=== PATIENT | male | born 1955 | race American Indian/Alaskan Native ===

== ENCOUNTER 2019-11-30 16:24 | Emergency (ER) | payer OTHER ==
--- NOTE | 2019-11-30 18:51 | Event Note ---
ED Screening Note Date of service: 11/30/19 Time: 18:49 ED Screening Note: This is a 64 y.o. M. that presents to the ER with left shoulder pain and swelling x 1 week. This initial assessment/diagnostic orders/clinical plan/treatment(s) is/are subject to change based on patients health status, clinical progression and re- assessment by fellow clinical providers in the ED. Further treatment and workup at subsequent clinical providers discretion. Patient/guardian urged not to elope from the ED as their condition may be serious if not clinically assessed and managed. Initial orders include: XR of left shoulder
--- NOTE | 2019-11-30 19:39 | XRay Report ---
LEFT SHOULDER 3 VIEW(S) INDICATION / CLINICAL INFORMATION: left shoulder pain and swelling COMPARISON: None available. FINDINGS: BONES / JOINT(S): No acute fracture or subluxation. Mild degenerative arthrosis left AC joint. SOFT TISSUES: No significant abnormality. ADDITIONAL FINDINGS: None. Signer Name: Salomon Galo MD Signed: 11/30/2019 7:35 PM Workstation Name: [id number]
--- NOTE | 2019-11-30 19:40 | XRay Report ---
CERVICAL SPINE 5 VIEWS INDICATION / CLINICAL INFORMATION: neck pain. COMPARISON: None available. FINDINGS: VERTEBRAE: No fracture. No significant malalignment. DISC SPACES:Mature anterior cervical disc fusion with osseous continuity extends from C3-6. 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 PREVERTEBRAL SOFT TISSUES:No significant abnormality. ADDITIONAL FINDINGS: Bilateral cervical ribs. Signer Name: Salomon Galo MD Signed: 11/30/2019 7:36 PM Workstation Name: [id number]
[2019-11-30] MEDS ORDERED: KETOROLAC 30 MG/1 ML INJ IM ONE (21:26)
[2019-11-30] MEDS ORDERED: oxyCODONE /ACETAMINOPHEN 5-325MG TAB PO ONE (21:26)
--- NOTE | 2019-11-30 21:45 | Emergency Department Report ---
Upper Extremity - HPI Chief Complaint: Neck Pain/Injury Stated Complaint: SHARP PAIN LT SHOULDER/NUMBNESS ELBOW Time Seen by Provider: 11/30/19 18:48 Upper Extremity: Left Shoulder Occurred When: 5 Days Mechanism: Other (no trauma) Severity: severe Symptoms: Yes Pain with Movement, No Deformity, No Limited Range of Movement, No Numbness, No Weakness, No Swelling, No Bruising/Ecchymosis, No Laceration or Abrasion Other History: Mr. Carranza is a 64-year-old male with history of rheumatoid arthritis, bilateral rotator cuff surgery, cervical fusion, diabetes mellitus, hypertension, hypothyroidism, who presents with 5 days of left shoulder pain. Fells swollen. PCP provided [id number] therapy. Pain is not improved. No direct trauma. Denies fever. Denies chest pain. Denies paresthesias ED Review of Systems ROS: Stated complaint: SHARP PAIN LT SHOULDER/NUMBNESS ELBOW Other details as noted in HPI Constitutional: denies: fever, malaise Respiratory: denies: cough Cardiovascular: denies: chest pain Gastrointestinal: denies: abdominal pain, nausea, vomiting Musculoskeletal: arthralgia Neurological: denies: numbness, paresthesias ED Past Medical Hx - Past Medical History Previous Medical History?: Yes Hx Hypertension: Yes Hx Diabetes: Yes Hx Arthritis: Yes Additional medical history: hypothyroid patient has been out of his Synthroid for months - Surgical History Past Surgical History?: Yes Additional Surgical History: cervical fusion. right eye..detatched retina. sinus surgery - Social History Smoking Status: Never Smoker Substance Use Type: None - Medications Home Medications: Home Medications Medication Instructions Recorded Confirmed Last Taken Type Levothyroxine [Synthroid] 25 mcg PO QAM 09/23/13 04/19/14 09/22/13 08:00 History PARoxetine HCl [PARoxetine] 40 mg PO QAM 09/23/13 04/19/14 09/22/13 08:00 History buPROPion [Wellbutrin] 75 mg PO BID 09/23/13 04/19/14 09/22/13 08:00 History lisinopriL [Zestril TAB] 20 mg PO QDAY 09/23/13 04/19/14 09/22/13 08:00 History Meclizine [Antivert] 25 mg PO TID PRN #90 tablet 06/15/14 Unknown Rx diazePAM TAB [Valium] 2 mg PO QHS #25 tablet 04/20/14 Unknown Rx oxyCODONE /ACETAMINOPHEN [Percocet 1 tab PO Q6HR PRN #20 tablet 04/12/16 Unknown Rx 5/325] Ibuprofen [Motrin 400 MG tab] 400 mg PO TID 5 Days #15 tablet 11/30/19 Unknown Rx Oxycodone HCl/Acetaminophen 1 each PO Q6HR PRN #10 tablet 11/30/19 Unknown Rx [Percocet 10/325 mg] Upper Extremity Exam - Exam General: Vital signs noted. No distress. Alert and acting appropriately. Head and Torso: No HEENT Abnormality, No Neck Tenderness, No Chest/Lungs Abnormality, No Abdominal Tenderness, No Back Tenderness Shoulder Exam: Yes Normal Range of Motion in Shoulder, No Shoulder Tenderness, No Clavicle Tenderness, No Shoulder Deformity, No AC Joint Tenderness Arm Exam: No Arm Deformity Elbow: Yes Normal Range of Motion in Elbow, No Elbow Tenderness, No Elbow Deformity ED Course Vital Signs 11/30/19 11/30/19 21:38 21:39 Respiratory 18 18 Rate ED Medical Decision Making - Radiology Data Radiology results: report reviewed Left shoulder radiographs three-view: Mild degenerative arthrosis of the left AC joint, no additional findings acute fracture or subluxation according to radiology impression Cervical spine radiographs reveal temperature anterior cervical disc fusion with discogenic degenerative changes C2-C3 66 C7 bilateral cervical ribs - Medical Decision Making Left shoulder pain suggestive of osteoarthritis versus cervical radiculopathy: Prescribed Percocet and ibuprofen. Discharged home referred to orthopedic surgeon Critical care attestation.: If time is entered above; I have spent that time in minutes in the direct care of this critically ill patient, excluding procedure time. ED Disposition Clinical Impression: Osteoarthritis of left shoulder, Acute pain of left shoulder, Cervical radiculopathy Disposition: TO HOME OR SELFCARE Is pt being admited?: No Does the pt Need Aspirin: No Condition: Stable Instructions: Osteoarthritis (ED), Cervical Radiculopathy (ED) Prescriptions: Ibuprofen [Motrin 400 MG tab] 400 mg PO TID 5 Days #15 tablet Oxycodone HCl/Acetaminophen [Percocet 10/325 mg] 1 each PO Q6HR PRN #10 tablet PRN Reason: Pain Referrals: KADI CUEVAS MD [Staff Physician] - 3-5 Days
[2019-11-30 21:57] VITALS: BP 146/82
== END 2019-11-30 21:57 | disposition home or self-care (01) ==
LOC: ED 16:24
DX: M19.012 Primary osteoarthritis, left shoulder (principal); M54.12 Radiculopathy, cervical region; I10 Essential (primary) hypertension; E11.9 Type 2 diabetes mellitus without complications; E03.9 Hypothyroidism, unspecified; Z98.890 Other specified postprocedural states; Z79.899 Other long term (current) drug therapy
CPT/HCPCS: 72040; 73030; 96372; 99283; J1885; 90471